=== PATIENT | female | born 1980 | race Caucasian/White ===

== ENCOUNTER → 2017-11-18 | Day surgery (SDC) | payer OTHER ==
[~2017-11-18] VITALS: Ht 172.7 cm; Wt 86.2 kg
[~2017-11-18] MED LIST: PANTOPRAZOLE SO40 M1 PO; PROAIR HFA8.5 GM INH; TRI-PREVIFEM T1 EACH PO
--- NOTE | 2017-11-18 13:18 | ULTRASOUND REPORT ---
EXAMINATION: CR PELVIS/INTRAOPERATIVE ULTRASOUND CLINICAL INDICATION: Dilatation and curettage. Prior to ablation with ultrasound guidance. Renal menorrhagia. COMPARISON: None TECHNIQUE/FINDINGS: Ultrasound equipment was dedicated to the operating room for the performance of an intraoperative procedure. Several (17) images were acquired and are archived in PACS. Please refer to operative notes for procedural detail. IMPRESSION: Administrative dictation for intraoperative sonography and image archiving in PACS. Please refer to operative notes for details.
--- NOTE | 2017-11-26 12:14 | Operative Report ---
Operative/Inv Procedure Report Surgery Date: 11/18/17 Name of Procedure: D&C hysteroscopy Pre-Operative Diagnosis: Metromenorrhagia Post-Operative Diagnosis: Same Estimated Blood Loss: less than 50ml Surgeon/Political Director: Kahlil VAIL,[place] Be Anesthesia: moderate sedation Operative/Procedure Note Note: Procedure note patient was taken to the operating and placed on position after adequate anesthesia patient placed in dorsolithotomy position the vagina from dorsal fashion bladder was catheterized examination under anesthesia performed is point Carrera speculum placed vagina CO2 tenaculum placed on the Intralipid cervix gentle downward traction patient tolerated that well I at this point the cervix was dilated 20 Hegar to left insertion of the hysteroscope scope was inserted and direct visualization using gastroscope moved sharp curettage endometrial lysed form Sharp curettage and cervical lining 2 specimen sent to pathology patient tolerated that well wants was removed the vagina the patient was returned spine position awakened from anesthesia and transferred recovery room awake alert counts correct Findings: Slightly enlarged uterus no adnexal masses normal uterine lining otherwise normal anatomy
== END ==
LOC: STS 01:09
DX: N92.1 Excessive and frequent menstruation with irregular cycle (principal); N72 Inflammatory disease of cervix uteri; K29.70 Gastritis, unspecified, without bleeding; J45.909 Unspecified asthma, uncomplicated; F17.200 Nicotine dependence, unspecified, uncomplicated
CPT/HCPCS: 76998; 81001; 81025; 88305; J0131; J2250